=== PATIENT | female | born 2000 | race Caucasian/White ===

== ENCOUNTER 2024-04-14 22:26 | Emergency (ER) | payer BC ==
[2024-04-14] MEDS ORDERED: Ondansetron 4 MG Tab.DIS ONE (23:05)
[2024-04-14] MEDS: Ondansetron 4 MG Tab.DIS PO ONE (23:36)
[2024-04-15] MEDS: Haloperidol Lactate 5 MG/ML SDV IM ONE (00:35)
== END 2024-04-15 02:09 | disposition home or self-care (01) ==
LOC: JD.ED 22:26
DX: S06.0X0A Concussion without loss of consciousness, initial encounter (principal); S00.03XA Contusion of scalp, initial encounter; Z79.899 Other long term (current) drug therapy; W01.198A Fall on same level from slipping, tripping and stumbling with subsequent striking against other object, initial encounter
CPT/HCPCS: 70450; 96372; 99283; A9270; J1630